=== PATIENT | female | born 1945 | race Caucasian/White ===

== ENCOUNTER → 2018-02-23 11:06 | Outpatient (CLI) | payer MEDICARE, SELFPAY ==
[2018-02-23 12:19] LABS: Thyroid Stim Hormone (TSH) 0.71 uIU/mL (0.358-3.74); Vitamin B12 427 pg/mL (211-911)
[2018-02-24 13:13] LABS: ANTINUCLEAR ANTIBODIES DIRECT Negative (Negative)
[2018-02-25 08:12] LABS: Ceruloplasmin 28.9 mg/dL (19.0-39.0)
[2018-02-25 10:04] LABS: Copper, Serum or Plasma 121 ug/dL (72-166)
== END ==
PROVIDERS: Family Provider Family Medicine; PCP Family Medicine; Referring Provider Psychiatry & Neurology Neurology; Visit Provider Psychiatry & Neurology Neurology
DX: R25.1 Tremor, unspecified (principal)
CPT/HCPCS: 36415; 82390; 82525; 82607; 84443; 86038